=== PATIENT | female | born 1950 | race Caucasian/White ===

== ENCOUNTER 2019-04-30 05:50 | Inpatient (IN) | payer BC, MEDICARE ==
[~2019-04-30] VITALS: Ht 152.4 cm; Wt 76.5 kg
[2019-04-30] VITALS (11 sets, daily range): BP systolic 90–117; BP diastolic 56–68
[~2019-04-30 05:50] MED LIST: ALLO100T PO; ALLO300T2 PO; ATOR20TA50 PO; LOVA20TA4 PO; METF-370 PO; VALS160T53 PO
[2019-04-30] MEDS ORDERED: MORPHINE SULF(PF) 0.5MG/ML 10ML VIAL ONE ×2 (06:50→07:36)
[2019-04-30] MEDS ORDERED: TRANEXAMIC ACID 20 ML ONE (06:50)
[2019-04-30] MEDS ORDERED: BUPIVACAINE W/ EPINEPH 0.25% INJ 50ML MDV ONE (06:50)
[2019-04-30] MEDS ORDERED: KETOROLAC TROMETH 30 MG/ML 1ML VIAL ONE (06:51)
[2019-04-30] MEDS ORDERED: VANCOMYCIN HCL 1000 MG VL ONE (07:06)
[2019-04-30] MEDS ORDERED: ACETAMINOPHEN IV 1000 MG/100ML (10MG/ML) IV ONE (07:15)
[2019-04-30] MEDS: CELECOXIB 100 MG CAP PO ONE ×2 (07:15→07:20)
[2019-04-30] MEDS: PREGABALIN CAPSULE 75 MG CAP PO ONE ×2 (07:15→07:20)
[2019-04-30] MEDS ORDERED: ceFAZolin 1GM 2 GM in D5W 5% 100 ML IV ONE (07:15)
[2019-04-30] MEDS ORDERED: ACETAMINOPHEN IV 100 ML IV ONE (07:16)
[2019-04-30] MEDS ORDERED: CELECOXIB 100 MG CAP ONE (07:16)
[2019-04-30] MEDS ORDERED: ceFAZolin 1GM/50ML 100 ML IV ONE (07:16)
[2019-04-30] MEDS ORDERED: DexAMETHasone SOD PHOS 10MG/1ML VIAL INJ IV ONE (07:25)
[2019-04-30] MEDS ORDERED: fentaNYL CITRATE 100 MCG/2 ML VL ONE (07:36)
[2019-04-30] MEDS ORDERED: MIDAZOLAM HCL 1MG/1ML-2 ML VIAL ONE ×2 (07:36→08:12)
[2019-04-30] MEDS ORDERED: TETRACAINE 1% INJ 2 ML VIAL IJ ONE (07:38)
[2019-04-30] MEDS ORDERED: PROPOFOL 10 MG/ML 20 ML IV ONE (07:52)
[2019-04-30] MEDS ORDERED: NALBUPHINE HCL 10 MG/1ml INJECTION SUBCUT ONE (08:30)
[2019-04-30] MEDS ORDERED: diphenhdrAMINE HCL 50 MG/1 ML VL IV PRN (08:30)
[2019-04-30] MEDS ORDERED: KETOROLAC TROMETH 30 MG/ML 1ML VIAL IV PRN (08:30)
[2019-04-30] MEDS ORDERED: ONDANSETRON HCL 4 MG/2 ML VIAL IV PRN ×2 (08:30→10:00)
[2019-04-30] MEDS ORDERED: NALOXONE HCL 0.4 MG/ML VIAL IV PRN (08:30)
[2019-04-30] MEDS ORDERED: LABETALOL HCL 5 MG/ML 4ML SYRINGE IV PRN (08:30)
[2019-04-30] MEDS ORDERED: MIDAZOLAM HCL 1MG/1ML-2 ML VIAL IV PRN (08:30)
[2019-04-30] MEDS ORDERED: ACCU-CHEK COMFORT CURVE STRIP VI ONE (08:30)
[2019-04-30] MEDS ORDERED: DexAMETHasone SOD PHOS 10MG/1ML VIAL INJ IV PRN (08:30)
[2019-04-30] MEDS ORDERED: HYDROmorphone HCL 2 MG/ML VL IV PRN ×2 (08:30→10:00)
[2019-04-30] MEDS: LACTATED RINGER'S 1,000 ML IV SCH ×2 (09:56→22:10)
[2019-04-30] MEDS ORDERED: ENOXAPARIN SOD 40 MG/0.4 ML SYRINGE SC SCH (10:00)
[2019-04-30] MEDS ORDERED: NITROGLYCERIN 0.4 MG SL TAB SL PRN (10:00)
[2019-04-30] MEDS ORDERED: ACETAMINOPHEN 325 MG TAB PO PRN (10:00)
[2019-04-30] MEDS ORDERED: PATIENTS OWN MEDICATION (Lovastatin 1 TAB) PO SCH (10:00)
[2019-04-30] MEDS ORDERED: MORPHINE SULF INJ 2 MG/ML SYRINGE 1ML IV PRN (10:00)
[2019-04-30] MEDS: VALSARTAN HYDROCHLOROTHIAZIDE PO SCH (10:00)
[2019-04-30] MEDS ORDERED: DEXTROSE (50%) 50ML SYRG IV PRN (10:00)
[2019-04-30] MEDS: ACCU-CHEK COMFORT CURVE STRIP VI SCH ×3 (10:09→22:11)
[2019-04-30] MEDS: ePHEDrine SULFATE 50 MG/ML AMP IV PRN ×2 (10:18→10:28)
[2019-04-30] MEDS: InsuLIN REG 1unit/0.01ml Soln (100units/ml) SC SCH ×3 (11:30→22:00)
[2019-04-30] MEDS: ceFAZolin 1GM/50ML 50 ML IV SCH ×3 (14:00→22:10)
[2019-04-30] MEDS: KETOROLAC TROMETH 30 MG/ML 1ML VIAL IV SCH ×2 (14:00→22:10)
[2019-04-30] MEDS: SODIUM CHLOR 0.9% PF (SALINE LOCK) 10ML VIAL/SYR IV SCH ×2 (14:07→22:10)
[2019-04-30] MEDS: DOCUSATE SOD 100 MG CAP PO SCH ×2 (14:30→22:00)
[2019-04-30] MEDS: metFORMIN HYDROCHLORIDE 500 MG TAB PO SCH (14:30)
--- NOTE | 2019-04-30 17:15 | NUR ---
To the Floor Patient arrived to the floor. No signs of distress at this time.
--- NOTE | 2019-04-30 18:42 | NUR ---
Respiratory note: PT ON CONT PULSE OX MONITOR ORDERED. SPO2 97% ON 3L NC. FAMILY AT BEDSIDE, DENY ANY NEEDS AT THIS TIME. NO DISTRESS NOTED.
--- NOTE | 2019-04-30 19:10 | NUR ---
Opening Shift Note Assumed care of patient, awake and alert. No S/S of distress/SOB or pain. Instructed on POC and to call for assist PRN, will continue to monitor for changes Q1hr and PRN. Side rails up x2. Bed locked in lowest position. Call light within reach. CPM on.
--- NOTE | 2019-04-30 22:01 | NUR ---
CPM turned off
[2019-04-30] MEDS: ATORVASTATIN 20 MG TAB PO SCH (22:11)
[2019-05-01] VITALS (13 sets, daily range): BP systolic 93–133; BP diastolic 56–67
[2019-05-01 05:42] LABS: Hemoglobin 12.6 g/dL (12.2-16.2)
[2019-05-01] MEDS: LACTATED RINGER'S 1,000 ML IV SCH ×2 (05:56→14:36)
[2019-05-01 06:03] LABS: Albumin 2.9 g/dL (3.4-5.0); Calcium 8.6 mg/dL (8.5-10.1); Potassium 4.1 mmol/L (3.5-5.1)
[2019-05-01 06:05] LABS: BUN/Creatinine Ratio 25.9
[2019-05-01 06:08] LABS: Bilirubin, Total 0.5 mg/dL (0.2-1.0); Total Protein 6.3 g/dL (6.4-8.2)
[2019-05-01] MEDS: InsuLIN REG 1unit/0.01ml Soln (100units/ml) SC SCH ×4 (06:49→21:36)
[2019-05-01] MEDS: SODIUM CHLOR 0.9% PF (SALINE LOCK) 10ML VIAL/SYR IV SCH ×3 (06:49→21:28)
[2019-05-01] MEDS: KETOROLAC TROMETH 30 MG/ML 1ML VIAL IV SCH ×3 (06:49→21:27)
[2019-05-01] MEDS: ACCU-CHEK COMFORT CURVE STRIP VI SCH ×4 (06:50→21:29)
--- NOTE | 2019-05-01 06:51 | NUR ---
Respiratory note: PT ON CONT PULSE OX MONITOR ORDERED. SPO2 98% ON 3L NC. FAMILY AT BEDSIDE, DENY ANY NEEDS AT THIS TIME. NO DISTRESS NOTED.
--- NOTE | 2019-05-01 07:26 | NUR ---
Endorsed care to day shift.
[2019-05-01] MEDS: metFORMIN HYDROCHLORIDE 500 MG TAB PO SCH (08:00)
[2019-05-01] MEDS: VALSARTAN HYDROCHLOROTHIAZIDE PO SCH (10:00)
[2019-05-01] MEDS: DOCUSATE SOD 100 MG CAP PO SCH ×2 (10:13→21:27)
[2019-05-01] MEDS: ENOXAPARIN SOD 40 MG/0.4 ML SYRINGE SC SCH (10:13)
--- NOTE | 2019-05-01 17:19 | NUR ---
assessment re: ss consult discharge planning Patient is a 68 year old female who is alert and oriented. Patients cognitive abilities are intact. Prior to admission patient lived home with family and functioned independently. Patient informed me she is able to care for her own ADLs. Per patient she will return home to her prior living arrangements post discharge and family will transport her home. Patients PCP is Dr Wren. Patient has been admitted for right knee replacement. Patient has a fww, rollator, bedside commode, and cane for home use. Patient will need home health for PT and CPM. I informed patient she has a right to speak to a social media marketing manager regarding all care. I informed patient she has a right to participate in any and all discharge planning. Patient has a POA and advanced directive. Patient verbalized understanding and agreed to discharge plan. Addendum: 05/01/19 at 1721 by Aranza ARZOLA Amended: Links added.
[2019-05-01] MEDS: ATORVASTATIN 20 MG TAB PO SCH (21:27)
[2019-05-02] MEDS: LACTATED RINGER'S 1,000 ML IV SCH ×2 (01:56→11:56)
[2019-05-02] MEDS: OXYCODONE W/ ACETAMINOPHEN 5/325MG TABLET PO PRN ×3 (03:45→15:35)
[2019-05-02 05:00] VITALS: BP 140/65
[2019-05-02] MEDS: KETOROLAC TROMETH 30 MG/ML 1ML VIAL IV SCH (06:12)
[2019-05-02] MEDS: SODIUM CHLOR 0.9% PF (SALINE LOCK) 10ML VIAL/SYR IV SCH ×2 (06:13→15:36)
[2019-05-02] MEDS: InsuLIN REG 1unit/0.01ml Soln (100units/ml) SC SCH ×2 (06:15→11:30)
[2019-05-02] MEDS: ACCU-CHEK COMFORT CURVE STRIP VI SCH ×2 (06:15→11:30)
[2019-05-02 07:19] LABS: Hematocrit 33.7 % (36.0-46.0); Hemoglobin 11.5 g/dL (12.2-16.2)
--- NOTE | 2019-05-02 08:00 | NUR ---
ASSESSMENT NOTE PATIENT IS ALERT ORIENTED X4, RESTING IN BED COMFORTABLY IN HIGH [place] POSITION, ABLE TO VERBALIS HER DEMANDS AND SELF REPOSITION NEEDED, FRANCISCO WRAP NOTED AT RT KNEE AREA, DENIES ANY PAIN AT THIS TIME 0/10, CALL LIGHT WITHIN REACH
[2019-05-02] MEDS: DOCUSATE SOD 100 MG CAP PO SCH (08:46)
[2019-05-02] MEDS: metFORMIN HYDROCHLORIDE 500 MG TAB PO SCH (08:47)
[2019-05-02] MEDS: ENOXAPARIN SOD 40 MG/0.4 ML SYRINGE SC SCH (08:47)
[2019-05-02 09:00] VITALS: BP 128/62
--- NOTE | 2019-05-02 09:00 | NUR ---
PHYSICAL THERAPY ASSITED BY PHYSICAL THERAPY TO GET OUT OF BED AND AMBULATE IN THE HALLWAYS WITH FRONT WHEEL WALKER, AMBULATED IN THE HALLWAYS, NO DISTRESS NOTED, TOLERATED WELL, THEN BACK TO HER ROOM, PATIENT'S AWARE AT BED SIDE
--- NOTE | 2019-05-02 09:30 | NUR ---
PT ON CPM TOLERATED WELL, CONTINUE MONITORING
[2019-05-02] MEDS: VALSARTAN HYDROCHLOROTHIAZIDE PO SCH (10:00)
--- NOTE | 2019-05-02 11:30 | NUR ---
FRONT WHEEL WALKER PT STATED < ITS ALREADY DELIVERED THE NEXT DAY OF MY SURGERY TO MY HOUSE> PT AWARE THAT THE CPM AT BED SIDE WILL GO HOME WITH HER
--- NOTE | 2019-05-02 12:45 | NUR ---
DR Brittany MENDEZ CALLED TO FOLLOW UP ON PT, INFORM ME THAT DR RAMOS DISCHARGING PT HOME, WHICH IS OKAY, VERIFY WITH ME WHAT IS PENDING, MADE AWARE HOME PHYSICAL THERAPY
[2019-05-02 13:00] VITALS: BP 146/63
--- NOTE | 2019-05-02 13:00 | NUR ---
PT IS USING INCENTIVE SPIROMETER, NO DISTRESS NOTED, CONTINUE MONITORING
--- NOTE | 2019-05-02 14:43 | NUR ---
[facility] INFORM ME THAT PT CAN GO HOME, [facility] WILL FOLLOW UP WITH PT
--- NOTE | 2019-05-02 15:15 | NUR ---
DISCHARGE INSTRUCTION GIVEN TO PT VERBALIS UNDERSTANDING, ATTEMPT TO TEACH PT OF HOW TO TAKE THE LOVONOX SHOT PT STATED < MY DAUGHTER KNOW HOW> ENCOURAGE PT TO HAVE HER DAUGHTER USE [employer] FOR LOVENOX, AND IF SHE HAVE ANY QUESTIONS TO CALL US
--- NOTE | 2019-05-02 15:49 | NUR ---
Discharge instructions given as ordered. Encourage to follow up with PMD as instructed. All questions and concerns addressed. Patient verbalized understanding. Medication reconciliation form completed and copy given to patient. IV removed with catheter intact, pressure dressing applied, Telemetry unit returned to ICU. Patient taken to vehicle via wheelchair with all personal/ CPM belongings, accompanied by staff and family member. No distress noted at time of departure. at her side at all times
--- NOTE | 2019-05-02 16:03 | NUR ---
Discharge planning per consult, patient has orders to dc with home health and a walker. Patient advised Nurse Rosalinda and student nurse that she already has a walker at home. Referral was sent to [facility], placed a follow up call, spoke with Jalen and was advised that they will accept this patient onto services. Nurse Tellez was advised of dc plan. Addendum: 05/02/19 at 1608 by WANG RO Amended: Links added.
== END 2019-05-02 15:49 | disposition home health service (06) | DRG 470 ==
LOC: SUR 05:50 → TELE 05:51 → EAST 15:12 → TELE-EAST 19:50
PROVIDERS: ADMIT Orthopaedic Surgery Adult Reconstructive Orthopaedic Surgery; ATTEND Orthopaedic Surgery Adult Reconstructive Orthopaedic Surgery
PROC: 8E0YXBZ Computer Assisted Procedure of Lower Extremity (ICD-10-PCS; 2019-04-30)
PROC: 0SRC0J9 Replacement of Right Knee Joint with Synthetic Substitute, Cemented, Open Approach (ICD-10-PCS; principal; 2019-04-30 07:38)
DX: M17.11 Unilateral primary osteoarthritis, right knee (principal); M10.9 Gout, unspecified; I10 Essential (primary) hypertension; E78.5 Hyperlipidemia, unspecified; E11.9 Type 2 diabetes mellitus without complications; Z87.891 Personal history of nicotine dependence; Z96.653 Presence of artificial knee joint, bilateral
CPT/HCPCS: 36415; 73562; 80053; 82962; 85014; 85018; 86850; 86900; 86901; 93005; 94762; 97116; 97530; G0378; J0131; J0690; J1100; J1815; J1885; J2250; J2405; J2704; J7060